=== PATIENT | male | born 1970 | race Caucasian/White ===

== ENCOUNTER 2024-04-17 12:46 | Emergency (ER) | payer OTHER, SELFPAY ==
[2024-04-17 12:58] VITALS: BP 156/90; PULSE 69; RESP 16; TEMP 37.1; O2SAT 100
--- NOTE | 2024-04-17 13:10 | ED.URI ---
HPI - URI/Sore Throat General Chief Complaint: Upper Respiratory Infection Stated Complaint: ears clogged,facial pressure Time Seen by Provider: 04/17/24 12:58 Source: patient and RN notes reviewed History of Present Illness HPI Narrative: Patient presents today complaining of a 1+ week history of congestion, left ear muffling and pressure, sinus pressure. Denies cough, rhinorrhea, fever. He has tried some cold medicine without relief. Denies known sick contacts, recent antibiotic use. He is a nonsmoker. No no history of asthma or COPD. Related Data Home Medications Medication Instructions Recorded Confirmed fluticasone propionate 50 1 spray intranasal DAILY 01/16/23 mcg/actuation nasal spray,suspension (Flonase Allergy Relief) latanoprost 0.005 % eye drops 1 drp EACH EYE QPM 01/16/23 Allergies Allergy/AdvReac Type Severity Reaction Status Date / Time No Known Allergies Allergy Mild Unverified 01/16/23 16:22 Review of Systems Review of Systems: CONSTITUTIONAL: Denies body aches, fever, chills, or sweats. EYES: Denies visual changes, redness, or discharge. ENT: Denies rhinorrhea, sore throat, or otalgia.+ congestion, left ear pressure and muffling, sinus pressure CARDIOVASCULAR: Denies chest pain, palpitations, or edema. RESPIRATORY: Denies cough or dyspnea. GASTROINTESTINAL: Denies abdominal pain, nausea, vomiting, or diarrhea. GENITOURINARY: Denies dysuria or hematuria. SKIN: Denies rash, itching, or wounds. MUSCULOSKELETAL: Denies back pain, joint pain, or myalgia. NEUROLOGIC: Denies headache, numbness, tingling, or weakness. PSYCH: Denies depression or anxiety. [facility] Past Medical History Medical History Acute hemorrhoid Family History Family History Mother Family history of emphysema, Onset Age: 58 Social History Social History Smoking status: Never smoker Alcohol intake: current Comments At time of signature, I have reviewed and agree with nursing past medical, surgical, social and family history unless otherwise noted. Please see nursing chart for further information. There is no relevant family history pertinent to the presenting complaint Exam Narrative: GENERAL: Well-appearing, well-nourished, and in no acute distress. HEAD: Normocephalic, atraumatic. EYES: EOMI. No redness or drainage. Conjunctivae normal. ENT: Mucous membranes pink and moist. Nares congested. No rhinorrhea. Bilateral nasal turbinates are erythematous and edematous with small of purulent discharge. Bilateral maxillary sinus tenderness. TMs normal bilaterally. Throat normal. Uvula midline. NECK: Normal AROM. Supple. No lymphadenopathy. CHEST: No respiratory distress. Clear to auscultation. HEART: Regular rate and rhythm. No murmur appreciated. EXTREMITIES: Normal range of motion. No edema. SKIN: Warm, dry, no rash. Capillary refill normal. Normal skin turgor. NEURO: No focal deficits. Alert and oriented x3. Gait steady. PSYCH: Normal affect. No signs of depression or anxiety. Course Course Level of Care: Express Care Visit Vital Signs Vital signs: Vital Signs Temperature 98.8 F 04/17/24 12:58 Pulse Rate 69 04/17/24 12:58 Respiratory Rate 16 04/17/24 12:58 Blood Pressure 156/90 H 04/17/24 12:58 Pulse Oximetry 100 04/17/24 12:58 Oxygen Delivery Room Air 04/17/24 12:58 Temperature 98.8 F 04/17/24 12:58 Pulse Rate 69 04/17/24 12:58 Respiratory Rate 16 04/17/24 12:58 Blood Pressure 156/90 H 04/17/24 12:58 Pulse Oximetry 100 04/17/24 12:58 Oxygen Delivery Room Air 04/17/24 12:58 Reviewed MDM - URI/Sore Throat MDM Narrative Medical decision making narrative: Patient's symptoms are consistent with bacterial sinusitis. Prescription for Augme
== END 2024-04-17 13:18 | disposition home or self-care (01) ==
PROVIDERS: Emergency Provider Nurse Practitioner; PCP Emergency Medicine
DX: J01.00 Acute maxillary sinusitis, unspecified (principal)
CPT/HCPCS: 99213; G0463